=== PATIENT | male | born 1940 | race Caucasian/White ===

== ENCOUNTER → 2025-01-01 10:10 | Outpatient (REF) | payer OTHER, SELFPAY ==
[2025-01-01 12:54] LABS: Lyme Antibody Screen, EIA Negative (Negative)
== END ==
LOC: REG 10:10
PROVIDERS: FAMILY PHYSICIAN Family Medicine
DX: M54.50 Low back pain, unspecified (principal); R53.1 Weakness
CPT/HCPCS: 36415; 72110; 86618; 86666; 86753

== ENCOUNTER → 2025-02-23 09:43 | Outpatient (REF) | payer OTHER, SELFPAY ==
[2025-02-23 11:53] LABS: ALT (SGPT) 28 U/L (0-50); AST (SGOT) 30 U/L (17-59); Albumin 4.9 g/dl (3.5-5.0); Alkaline Phosphatase 84 U/L (38-126); Blood Urea Nitrogen 21 mg/dl (9-20); Calcium 10.3 mg/dl (8.4-10.2); Carbon Dioxide 30 mmol/L (22-30); Chloride 100 mmol/L (98-107); Glucose 81 mg/dl (70-99); HDL Cholesterol 43 mg/dl; LDL Cholesterol, Calculated 104 mg/dl; Potassium 4.7 mmol/L (3.5-5.1); Sodium 142 mmol/L (135-145); Total Protein 7.8 g/dl (6.3-8.2); Very Low Density Lipoprotein 52 mg/dl (0-30); eGFR > 60.00
== END ==
LOC: REG 09:43
PROVIDERS: ATTENDING PHYSICIAN Internal Medicine; FAMILY PHYSICIAN Family Medicine
DX: I25.118 Atherosclerotic heart disease of native coronary artery with other forms of angina pectoris (principal); E78.5 Hyperlipidemia, unspecified
CPT/HCPCS: 36415; 80053; 80061

== ENCOUNTER → 2025-02-25 08:59 | Outpatient (REF) | payer OTHER, SELFPAY | LOC: RAD 08:59 | PROVIDERS: ATTENDING PHYSICIAN Family Medicine | DX: Z01.89 Encounter for other specified special examinations (principal) | CPT/HCPCS: 70030 ==

== ENCOUNTER → 2025-03-03 06:36 | Outpatient (REF) | payer OTHER, SELFPAY | LOC: RAD 06:36 | PROVIDERS: ATTENDING PHYSICIAN Internal Medicine; FAMILY PHYSICIAN Family Medicine | DX: I25.118 Atherosclerotic heart disease of native coronary artery with other forms of angina pectoris (principal); I10 Essential (primary) hypertension; I73.9 Peripheral vascular disease, unspecified; I25.708 Atherosclerosis of coronary artery bypass graft(s), unspecified, with other forms of angina pectoris | CPT/HCPCS: 93306; 93922; 93925; Q9950 ==